=== PATIENT | male | born 1985 | race Asian ===

== ENCOUNTER 2021-09-24 21:22 | Emergency (ER) | payer BC ==
[~2021-09-24] VITALS: Ht 188 cm; Wt 115.9 kg
[2021-09-24] MEDS ORDERED: AMOX1TAB15 PO (21:36)
[2021-09-24] MEDS ORDERED: LIDOCAINE 1%/EPI 1:100,000 30 ML VIAL ID ONE (22:30)
[2021-09-24] MEDS ORDERED: CEPHALEXIN MONOHYDRATE 500 MG CAPSULE PO ONE (22:30)
[2021-09-24] MEDS ORDERED: SULFAMETHOX/TRIMETH DS 800-160 MG/TABLET PO ONE (22:30)
[2021-09-24] MEDS ORDERED: LIDOCAINE 1% 10 ML VIAL ONE (22:35)
[2021-09-24] MEDS ORDERED: LIDOCAINE 1% 10 ML VIAL SQ ONE (22:45)
[2021-09-24 22:53] VITALS: BP 159/96
[2021-09-24] MEDS ORDERED: CEPH-558 PO (22:55)
[2021-09-24] MEDS ORDERED: SULF-261 PO (22:55)
== END 2021-09-24 23:03 | disposition home or self-care (01) ==
LOC: EMS 21:31
DX: L02.211 Cutaneous abscess of abdominal wall (principal)
CPT/HCPCS: 10060; 99283; J3490